=== PATIENT | male | born 1990 | race Caucasian/White ===

== ENCOUNTER 2017-12-21 09:34 | Inpatient (IN) | payer BC ==
[2017-12-21 10:36] VITALS: BMI 21.4
--- NOTE | 2017-12-21 13:31 | HP ---
COWS - Scale Resting Pulse: 0= MS 80 or Below Sweatin= No chills or Flushing Restless Observation: 3= Extraneous Movement Pupil Size: 1= Pupils >than Normal Bone or Joint Aches: 1= Mild Discomfort Runny Nose/ Eye Tearin= None GI Upset > 30mins: 0= None Tremor Observation: 2= Slight Tremor Visible Yawning Observation: 4= Several Times/Minute Anxiety or Irritability: 2=Irritable/Anxious Goose Flesh Skin: 0=Smooth Skin COWS Score: 13 CIWA Score - CIWA Score Nausea/Vomitin-No Nausea/No Vomiting Muscle Tremors: 4-Moderate,w/Arms Extend Anxiety: 4-Mod. Anxious/Guarded Agitation: 1-Slight > Activity Paroxysmal Sweats: 1-Minimal Palms Moist Orientation: 1-Uncertain about Date Tacttile Disturbances: 0-None Auditory Disturbances: 0-None Visual Disturbances: 0-None Headache: 1-Very Mild CIWA-Ar Total Score: 12 Admission ROS S - HPI Chief Complaint: withdrawal symptoms Allergies/Adverse Reactions: Allergies Allergy/AdvReac Type Severity Reaction Status Date / Time fish derived Allergy Intermediate Difficulty Verified 12/21/17 10:57 Breathing shellfish Allergy Intermediate Difficulty Uncoded 12/21/17 10:58 Breathing History of Present Illness: 27 yo male with hx of IV Heroin, cocaine, Xanax dependence. PMHX asthma and difficulty sleeping, denies any other medical hx. Reports imprisonment for 56 months and currently on parole. Longest period of sobriety while in retirement for 8 month. Last detox October, at [facility]Note 3] for Recovery. Currently denies suicidal / homicidal ideation or suicide attempts. - Ebola screening Have you traveled outside of the country in the last 21 days: No Have you had contact with anyone from an Ebola affected area: No Have you been sick,other than usual withdrawal symptoms: No Do you have a fever: No - Review of Systems Constitutional: Chills, Changes in sleep, Unintentional Wgt. Loss (reports lost 10 - 15 lbs in thelast 6 months) EENT: reports: No Symptoms Reported Respiratory: reports: No Symptoms reported Cardiac: reports: No Symptoms Reported GI: reports: No Symptoms Reported : reports: No Symptoms Reported (reports no urinary symptoms) Musculoskeletal: reports: Back Pain, Joint Pain Integumentary: reports: Pruritus, Other (reports like to "pick at skin and forms scabs all over skin ") Neuro: reports: Tremors Endocrine: reports: Increased Thirst, Change in Weight Hematology: reports: No Symptoms Reported Psychiatric: reports: Orientated x3, Anxious Other Systems: Reviewed and Negative Patient History - Patient Medical History Hx Anemia: No Hx Asthma: Yes Hx Chronic Obstructive Pulmonary Disease (COPD): No Hx Cancer: No Hx Cardiac Disorders: No Hx Congestive Heart Failure: No Hx Hypertension: No Hx Hypercholesterolemia: No Hx Pacemaker: No HX Cerebrovascular Accident: No Hx Seizures: No Hx Dementia: No Hx Diabetes: No Hx Gastrointestinal Disorders: No Hx Liver Disease: No Hx Genitourinary Disorders: No Hx Sexually Transmitted Disorders: No Hx Renal Disease (ESRD): No Hx Thyroid Disease: No Hx Human Immunodeficiency Virus (HIV): No Hx Hepatitis C: No Hx Depression: No Hx Suicide Attempt: No Hx Bipolar Disorder: No Hx Schizophrenia: No - Patient Surgical History Past Surgical History: No Hx Neurologic Surgery: No Hx Cataract Extraction: No Hx Cardiac Surgery: No Hx Lung Surgery: No Hx Breast Surgery: No Hx Breast Biopsy: No Hx Abdominal Surgery: No Hx Appendectomy: No Hx Cholecystectomy: No Hx Genitourinary Surgery: No Hx Section: No Hx Orthopedic Surgery: No Anesthesia Reaction: No - PPD History Previous Implant?: Yes Documented Results: Negative w/o proof Implanted On Prior R Admission?: No PPD to be Administered?: Yes - Reproductive History Patient is a Female of Child Bearing Age (11 -55 yrs old): No - Smoking Cessation Smoking history: Current every day smoker Have you smoked in the past 12 months: Yes Aproximately how many cigarettes per day: 10 Hx Chewing Tobacco Use: No Initiated information on smoking cessation: Yes 'Breaking Loose' booklet given: 12/21/17 - Substance & Tx. History Hx Alcohol Use: No Hx Substance Use: Yes Substance Use Type: Cocaine, Heroin, Tranquilizers Hx Substance Use Treatment: Yes ([facility] October 2017) - Substances Abused Heroin Route: Injection Frequency: Daily Amount used: 10-15 bags Age of first use: 26 Date of Last Use: 12/20/17 Cocaine Route: Injection Frequency: Daily Amount used: 3 gms Age of first use: 13 Date of Last Use: 12/20/17 Alprazolam (Xanax) Route: Oral Frequency: Daily Amount used: 2-4 bars Age of first use: 13 Date of Last Use: 12/19/17 Family Disease History - Family Disease History Family Disease History: Other: Father (alive and well ), Mother (alive and well ) Admission Physical Exam [facility] - Vital Signs Vital Signs: Vital Signs - 24 hr 12/21/17 10:33 Temperature 96.2 F L Pulse Rate 78 Respiratory 20 Rate Blood Pressure 115/71 - Physical General Appearance: Yes: No Apparent Distress, Disheveled, Thin, Irritable, Anxious HEENTM: Yes: Hearing grossly Normal, Normal ENT Inspection, Normocephalic, Normal Voice, ROMAIN, Pharynx Normal, Tm's normal, Other (dry mucous membranes) Respiratory: Yes: Chest Non-Tender, Lungs Clear, Normal Breath Sounds, No Respiratory Distress, No Accessory Muscle Use Neck: Yes: No masses,lesions,Nodules, Trachea in good position Breast: Yes: Breast Exam Deferred Cardiology: Yes: Within Normal Limits, Regular Rhythm, Regular Rate, S1, S2 Abdominal: Yes: Normal Bowel Sounds, Non Tender, Flat, Soft Genitourinary: Yes: Within Normal Limits (reports no urinary symptoms) Back: Yes: Normal Inspection Musculoskeletal: Yes: full range of Motion, Gait Steady, Pelvis Stable Extremities: Yes: Normal Capillary Refill, Normal Inspection, Normal Range of Motion, Non-Tender Neurological: Yes: Fully Oriented, Alert, Motor Strength 5/5, Normal Mood/Affect , Normal Response Integumentary: Yes: Normal Color, Dry, Warm, Track Ann (bilateral forearms in different healing stages), Other (poor skin turgor) Lymphatic: Yes: Within Normal Limits - Diagnostic (1) Opioid dependence with withdrawal Current Visit: Yes Status: Acute (2) Sedative, hypnotic or anxiolytic use, unspecified with withdrawal with perceptual disturbances Current Visit: Yes Status: Acute (3) Cocaine dependence Current Visit: Yes Status: Chronic (4) Weight loss Current Visit: Yes Status: Acute (5) Dehydration Current Visit: Yes Status: Acute (6) Asthma Current Visit: Yes Status: Chronic Qualifiers: Asthma severity: mild (7) Nicotine dependence Current Visit: Yes Status: Chronic Qualifiers: Nicotine product type: cigarettes Substance use status: uncomplicated Qualified Code(s): F17.210 - Nicotine dependence, cigarettes, uncomplicated (8) IV drug user Current Visit: Yes Status: Acute Cleared for Admission [facility] - Detox or Rehab [facility] Level of Care: Medically Managed Detox Regimen/Protocol: Methadone/Valium [facility] Breath Alcohol Content Breath Alcohol Content: 0 Urine Drug Screen - Results Drug Screen Negative: No Urine Drug Screen Results: THC-Marijuana, RENE-Cocaine, OPI-Opiates, OXY- Oxycodone
[2017-12-21] MEDS ORDERED: MAG HYDROX/AL HYDROX/SIMETH 30 ML UNIT-DOSE CUP PO PRN (13:42)
[2017-12-21] MEDS ORDERED: IBUPROFEN 400 MG TABLET (FP) PO PRN (13:42)
[2017-12-21] MEDS ORDERED: hydrOXYzine PAMOATE 50 MG CAPSULE (FP) PO PRN (13:42)
[2017-12-21] MEDS ORDERED: NICOTINE POLACRILEX 2 MG GUM BUC PRN (13:42)
[2017-12-21] MEDS ORDERED: LOPERAMIDE HCL 2 MG CAPSULE PO PRN (13:42)
[2017-12-21] MEDS ORDERED: P-EPHED 60MG/TRIPROLIDI 2.5MG TABLET PO PRN (13:42)
[2017-12-21] MEDS ORDERED: ACETAMINOPHEN 325 MG TABLET (FP) PO PRN (13:42)
[2017-12-21] MEDS ORDERED: MAGNESIUM HYDROX 2400MG/30ML ORAL SUSPENSION 30 ML CUP PO PRN (13:42)
[2017-12-21] MEDS ORDERED: MENTHOL/PHENOL 1 EACH UD MM PRN (13:42)
[2017-12-21] MEDS ORDERED: MAGNESIUM CITRATE 300 ML BOTTLE PO PRN (13:42)
[2017-12-21] MEDS ORDERED: guaiFENesin/D-METHORPHAN HB 10 ML UNIT-DOSE CUPS PO PRN (13:42)
[2017-12-21] MEDS ORDERED: ALBUTEROL SO4 18 GM HFA INHALER IH PRN (13:45)
[2017-12-21] MEDS ORDERED: ALBUTEROL SO4 2.5/IPRATROPIUM 0.5 INH SOL 3 ML VIAL.NEB. NEB PRN (13:51)
[2017-12-21] MEDS ORDERED: diazePAM 5 MG TABLET PO ONE (13:59)
[2017-12-21] MEDS ORDERED: METHADONE HCL 10 MG TABLET (FOR DETOX USE ONLY) PO ONE ×2 (13:59→23:00)
[2017-12-21] MEDS: NICOTINE 14 MG/24 HOURS TOPICAL PATCH TD SCH (14:48)
[2017-12-21] MEDS: diazePAM 5 MG TABLET PO SCH ×2 (14:57→22:07)
[2017-12-21 17:32] LABS: URINE APPEARANCE CLEAR; URINE BILIRUBIN NEGATIVE (NEGATIVE); URINE BLOOD NEGATIVE (NEGATIVE); URINE COLOR DKYELLOW; URINE GLUCOSE (UA) NEGATIVE (NEGATIVE); URINE KETONE NEGATIVE (NEGATIVE); URINE LEUK ESTERASE NEGATIVE (NEGATIVE); URINE NITRITE NEGATIVE (NEGATIVE)
[2017-12-21 17:37] LABS: URINE PROTEIN 1+ (NEGATIVE)
--- NOTE | 2017-12-21 18:04 | CONSULT ---
[facility] Psychiatric Consult - Data Date of interview: 12/21/17 Admission source: [facility] Identifying data: First admission to [facility] for this 27 y/o male seeking detox treatment on 3 for heroin,cocaine,marihuana and xanax dependence.Patient is single without children,domiciled,unemployed and supported by relatives. Substance Abuse History: Discussed with patient.Addictions as reported in current [facility] report : confirmed. Smoking history: Current every day smoker. Have you smoked in the past 12 months: Yes. Aproximately how many cigarettes per day: 10. Hx Chewing Tobacco Use: No. Initiated information on smoking cessation: Yes. 'Breaking Loose' booklet given: 12/21/17. - Substance & Tx. History. Hx Alcohol Use: No. Hx Substance Use: Yes. Substance Use Type: Cocaine, Heroin, Tranquilizers. Hx Substance Use Treatment: Yes ([facility] October 2017). - Substances Abused. Heroin. Route: Injection. Frequency: Daily. Amount used: 10-15 bags. Age of first use: 26. Date of Last Use: 12/20/17. * * Cocaine. Route: Injection. Frequency: Daily. Amount used: 3 gms. Age of first use: 13. Date of Last Use: 12/20/17. Alprazolam (Xanax). Route: Oral. Frequency: Daily. Amount used: 2-4 bars. Age of first use: 13. Date of Last Use: 12/19/17 Medical History: Bronchial asthma. Psychiatric History: One psychiatric hospitalizations,at age 14,at the [facility].Diagnosis : unclear (patient did not elaborate).Mr Jerry indicates that he is not on psychiatric medications with the exception of naloxone.Sees a private psychiatrist in the community ([facility]). Physical/Sexual Abuse/Trauma History: Patient denies. Additional Comment: Urine Drug Screen Results: THC-Marijuana, RENE-Cocaine, OPI- Opiates, OXY-Oxycodone.Noted. Mental Status Exam - Mental Status Exam Alert and Oriented to: Time, Place, Person Cognitive Function: Good Patient Appearance: Disheveled Mood: Nervous (dysphoric), Withdrawn, Anxious Affect: Appropriate, Normal Range Patient Behavior: Fatigued, Appropriate, Cooperative Speech Pattern: Clear, Appropriate Voice Loudness: Normal Thought Process: Goal Oriented Thought Disorder: Not Present Hallucinations: Denies Suicidal Ideation: Denies Homicidal Ideation: Denies Insight/Judgement: Poor Sleep: Well (remeron), Poorly, Difficulty falling asleep Appetite: Good Muscle strength/Tone: Normal Gait/Station: Normal Psychiatric Findings - Problem List (Zenia 1, 2,3) (1) Opioid dependence with withdrawal Current Visit: Yes Status: Acute (2) Sedative, hypnotic or anxiolytic use, unspecified with withdrawal with perceptual disturbances Current Visit: Yes Status: Acute (3) Cocaine dependence Current Visit: Yes Status: Chronic (4) Cannabis dependence Current Visit: Yes Status: Acute (5) Nicotine dependence Current Visit: Yes Status: Chronic Qualifiers: Nicotine product type: cigarettes Substance use status: uncomplicated Qualified Code(s): F17.210 - Nicotine dependence, cigarettes, uncomplicated (6) Substance induced mood disorder Current Visit: Yes Status: Acute (7) Insomnia Current Visit: Yes Status: Acute - Initial Treatment Plan Initial Treatment Plan: Psychoeducation and syupport.Sleep hygiene discussed with patient.Detoxification in progress.Remeron 7.5 mg po hs.Side effects/ benefits discussed with the patient.Mr Jerry agreed to this careplan.Observation.
[2017-12-21] MEDS: diazePAM 5 MG TABLET PO PRN (20:27)
[2017-12-21] MEDS: MIRTAZAPINE 15 MG TABLET (FP) PO SCH (22:06)
[2017-12-21] MEDS: THIAMINE HCL 100 MG TABLET (FP) PO SCH (22:07)
[2017-12-22] MEDS: diazePAM 5 MG TABLET PO PRN ×2 (00:33→10:12)
[2017-12-22] MEDS: diazePAM 5 MG TABLET PO SCH ×3 (05:57→22:07)
[2017-12-22] MEDS ORDERED: METHADONE HCL 10 MG TABLET (FOR DETOX USE ONLY) PO SCH (10:00)
[2017-12-22] MEDS: PRENATAL VITAMINS W/ FOLIC ACID TABLET (FP) PO SCH (10:12)
[2017-12-22] MEDS: NICOTINE 14 MG/24 HOURS TOPICAL PATCH TD SCH (10:13)
[2017-12-22 10:38] LABS: HEMATOCRIT 41.7 % (35.4-49); HEMOGLOBIN 13.9 GM/dL (11.7-16.9); MCH 30.6 pg (25.7-33.7); MCHC 33.3 g/dl (32.0-35.9); MEAN CELL VOLUME 91.9 fl (80-96); MEAN PLT VOLUME 9.5 fl (7.5-11.1); PLATELET COUNT 299 K/MM3 (134-434); RBC 4.53 M/mm3 (4.00-5.60); RDW 12.8 % (11.9-15.9); WHITE BLOOD COUNT 10.2 K/mm3 (4.0-10.0)
[2017-12-22 11:13] LABS: ANION GAP 7 (8-16); BLOOD UREA NITROGEN 19 mg/dL (7-18); CHLORIDE 103 mmol/L (98-107); CO2 30 mmol/L (21-32); GLUCOSE,RANDOM 91 mg/dL (74-106); POTASSIUM 3.6 mmol/L (3.5-5.1); SODIUM 140 mmol/L (136-145); TOT PROT 7.8 g/dl (6.4-8.2)
[2017-12-22 11:21] LABS: ALK PHOS 97 U/L (45-117); BILIRUBIN,TOTAL 0.6 mg/dL (0.2-1.0); CREATININE 0.9 mg/dL (0.7-1.3); SGOT/AST 23 U/L (15-37); SGPT/ALT 44 U/L (12-78)
[2017-12-22] MEDS ORDERED: CYCLOBENZAPRINE HCL 10 MG TABLET (FP) PO PRN (11:32)
--- NOTE | 2017-12-22 14:39 | PN ---
[facility] CIWA - CIWA Score Nausea/Vomitin-No Nausea/No Vomiting Muscle Tremors: 2 Anxiety: 4-Mod. Anxious/Guarded Agitation: 3 Paroxysmal Sweats: 3 Orientation: 0-Oriented Tacttile Disturbances: 2-Mild Itch/Numbness/Burn Auditory Disturbances: 1-Very Mild Visual Disturbances: 0-None Headache: 3-Moderate CIWA-Ar Total Score: 18 BHS COWS - Scale Resting Pulse: 1= NM 81-100 Sweatin= Chills/Flushing Restless Observation: 1= Difficult to Sit Still Pupil Size: 0= Normal to Room Light Bone or Joint Aches: 2= Severe Diffuse Aches Runny Nose/ Eye Tearin= None GI Upset > 30mins: 1= Stomach Cramp Tremor Observation of Outstretched Hands: 0= None Yawning Observation: 1= 1-2x During Session Anxiety or Irritability: 2=Irritable/Anxious Goose Flesh Skin: 3=Piloerection COWS Score: 12 BHS Progress Note (SOAP) Subjective: Interrupted sleep, Sweating, Body aches, H/A. Objective: PT. A & O X 3, OBSERVED AMBULATING ON UNIT. NO ACUTE DISTRESS. 12/22/17 14:37 Vital Signs Temperature 96.9 F L 12/22/17 13:19 Pulse Rate 84 12/22/17 13:19 Respiratory Rate 18 12/22/17 13:19 Blood Pressure 107/63 12/22/17 13:19 O2 Sat by Pulse Oximetry (%) Laboratory Tests 12/21/17 12/22/17 12/22/17 15:00 08:15 08:15 WBC 10.2 H RBC 4.53 Hgb 13.9 Hct 41.7 MCV 91.9 MCH 30.6 MCHC 33.3 RDW 12.8 Plt Count 299 MPV 9.5 Sodium Potassium Chloride Carbon Dioxide Anion Gap BUN Creatinine Creat Clearance w eGFR Random Glucose Calcium Total Bilirubin AST ALT Alkaline Phosphatase Total Protein Albumin Urine Color Dkyellow Urine Appearance Clear Urine pH 5.0 Ur Specific [place] 1.029 Urine Protein 1+ H Urine Glucose (UA) Negative Urine Ketones Negative Urine Blood Negative Urine Nitrite Negative Urine Bilirubin Negative Urine Urobilinogen 2.0 Ur Leukocyte Esterase Negative RPR Titer HIV 1&2 Antibody Screen Negative HIV P24 Antigen Negative 12/22/17 12/22/17 08:15 08:15 WBC RBC Hgb Hct MCV MCH MCHC RDW Plt Count MPV Sodium 140 Potassium 3.6 Chloride 103 Carbon Dioxide 30 Anion Gap 7 L BUN 19 H Creatinine 0.9 Creat Clearance w eGFR > 60 Random Glucose 91 Calcium 9.0 Total Bilirubin 0.6 AST 23 ALT 44 Alkaline Phosphatase 97 Total Protein 7.8 Albumin 4.0 Urine Color Urine Appearance Urine pH Ur Specific [place] Urine Protein Urine Glucose (UA) Urine Ketones Urine Blood Urine Nitrite Urine Bilirubin Urine Urobilinogen Ur Leukocyte Esterase RPR Titer Nonreactive HIV 1&2 Antibody Screen HIV P24 Antigen LABS NOTED. HCV AB RESULT PENDING. 12/22/17 14:39 Assessment: 12/22/17 14:37 WITHDRAWAL SYMPTOMS. Plan: CONTINUE DETOX. INCREASE DAILY PO FLUID INTAKE.
[2017-12-22] MEDS: MIRTAZAPINE 15 MG TABLET (FP) PO SCH (22:07)
[2017-12-22] MEDS: THIAMINE HCL 100 MG TABLET (FP) PO SCH (22:07)
[2017-12-23 09:40] VITALS: BP 128/80; PULSE 82; TEMP 98
[2017-12-23] MEDS ORDERED: METHADONE HCL 5 MG TABLET (FOR DETOX USE ONLY) PO SCH (10:00)
[2017-12-23] MEDS ORDERED: diazePAM 5 MG TABLET PO SCH (10:00)
[2017-12-23] MEDS: PRENATAL VITAMINS W/ FOLIC ACID TABLET (FP) PO SCH (10:06)
[2017-12-23] MEDS: NICOTINE 14 MG/24 HOURS TOPICAL PATCH TD SCH (10:08)
--- NOTE | 2017-12-23 12:50 | DS ---
[facility] Detox Discharge Summary Admission Date: 12/21/17 Discharge Date: 12/23/17 - History Present History: Cannabis Dependence, Cocaine Dependence, Opioid Dependence, Sedative Dependence Additional Comments: PATIENT DOES NOT WISH TO STAY TO COMPLETE DETOX REGIMEN. RISKS OF LEAVING AGAINST MEDICAL ADVICE AND PRIOR TO COMPLETION OF DETOX REGIMEN EXPLAINED TO PATIENT. PATIENT ADVISED TO GO IMMEDIATELY TO NEAREST ER SHOULD ANY INTOLERABLE DETOX SYMPTOMS DEVELOP AT ANY TIME. PATIENT LEFT DETOX UNIT IN STABLE MEDICAL CONDITION. Pertinent Past History: Dehydration, Depression, Insomnia, Asthma, Weight loss. - Physical Exam Results Vital Signs: Vital Signs Temperature 98.0 F 12/23/17 09:39 Pulse Rate 82 12/23/17 09:39 Respiratory Rate 18 12/23/17 09:39 Blood Pressure 128/80 12/23/17 09:39 O2 Sat by Pulse Oximetry (%) Pertinent Admission Physical Exam Findings: WITHDRAWAL SYMPTOMS. Laboratory Tests 12/21/17 12/22/17 12/22/17 15:00 08:15 08:15 WBC RBC Hgb Hct MCV MCH MCHC RDW Plt Count MPV Sodium Potassium Chloride Carbon Dioxide Anion Gap BUN Creatinine Creat Clearance w eGFR Random Glucose Calcium Total Bilirubin AST ALT Alkaline Phosphatase Total Protein Albumin Urine Color Dkyellow Urine Appearance Clear Urine pH 5.0 Ur Specific [place] 1.029 Urine Protein 1+ H Urine Glucose (UA) Negative Urine Ketones Negative Urine Blood Negative Urine Nitrite Negative Urine Bilirubin Negative Urine Urobilinogen 2.0 Ur Leukocyte Esterase Negative RPR Titer Hepatitis C Antibody <0.1 HIV 1&2 Antibody Screen Negative HIV P24 Antigen Negative 12/22/17 12/22/17 12/22/17 08:15 08:15 08:15 WBC 10.2 H RBC 4.53 Hgb 13.9 Hct 41.7 MCV 91.9 MCH 30.6 MCHC 33.3 RDW 12.8 Plt Count 299 MPV 9.5 Sodium 140 Potassium 3.6 Chloride 103 Carbon Dioxide 30 Anion Gap 7 L BUN 19 H Creatinine 0.9 Creat Clearance w eGFR > 60 Random Glucose 91 Calcium 9.0 Total Bilirubin 0.6 AST 23 ALT 44 Alkaline Phosphatase 97 Total Protein 7.8 Albumin 4.0 Urine Color Urine Appearance Urine pH Ur Specific [place] Urine Protein Urine Glucose (UA) Urine Ketones Urine Blood Urine Nitrite Urine Bilirubin Urine Urobilinogen Ur Leukocyte Esterase RPR Titer Nonreactive Hepatitis C Antibody HIV 1&2 Antibody Screen HIV P24 Antigen LABS NOTED. - Treatment Hospital Course: Detoxed Safely - Medication Discharge Medications: Ambulatory Orders Albuterol Sulfate Inhaler - [Ventolin Hfa Inhaler -] 1 - 2 inh PO QID PRN - Diagnosis (1) IV drug user Current Visit: Yes Status: Acute (2) Opioid dependence with withdrawal Current Visit: Yes Status: Acute (3) Sedative, hypnotic or anxiolytic use, unspecified with withdrawal with perceptual disturbances Current Visit: Yes Status: Acute (4) Dehydration Current Visit: Yes Status: Acute (5) Insomnia Current Visit: Yes Status: Acute Qualifiers: Insomnia type: unspecified Qualified Code(s): G47.00 - Insomnia, unspecified (6) Asthma Current Visit: Yes Status: Chronic Qualifiers: Asthma severity: mild Asthma persistence: unspecified Asthma complication type: unspecified Qualified Code(s): J45.998 - Other asthma (7) Weight loss Current Visit: Yes Status: Acute (8) Cocaine dependence Current Visit: Yes Status: Chronic Qualifiers: Substance use status: uncomplicated Qualified Code(s): F14.20 - Cocaine dependence, uncomplicated (9) Substance induced mood disorder Current Visit: Yes Status: Acute - AMA Did Patient Leave Against Medical Advice: Yes (PATIENT DID NOT WISH TO STAY TO COMPLETE DETOX REGIMEN.)
--- NOTE | 2017-12-23 13:25 | EKG ---
Test Reason : Blood Pressure : / mmHG Vent. Rate : 055 BPM Atrial Rate : 055 BPM P-R Int : 114 ms QRS Dur : 108 ms QT Int : 528 ms P-R-T Axes : 067 073 072 degrees QTc Int : 505 ms SINUS BRADYCARDIA PROLONGED QT ABNORMAL ECG NO PREVIOUS ECGS AVAILABLE CLINICAL CORRELATION IS RECOMMENDED Confirmed by MAYE IBARRA MD ([id number]) on 12/23/2017 1:25:09 PM Referred By: Confirmed By:MAYE IBARRA MD
--- NOTE | 2017-12-23 13:29 | EKG ---
Test Reason : Blood Pressure : / mmHG Vent. Rate : 061 BPM Atrial Rate : 061 BPM P-R Int : 142 ms QRS Dur : 094 ms QT Int : 510 ms P-R-T Axes : 074 077 075 degrees QTc Int : 513 ms NORMAL SINUS RHYTHM PROLONGED QT ABNORMAL ECG WHEN COMPARED WITH ECG OF 21-DEC-2017 14:59, NO SIGNIFICANT CHANGE WAS FOUND CLINICAL CORRELATION IS RECOMMENDED Confirmed by STACEY QUAN, MAYE ([id number]) on 12/23/2017 1:28:54 PM Referred By: Confirmed By:MAYE IBARRA MD
[2017-12-25] MEDS ORDERED: METHADONE HCL 10 MG TABLET (FOR DETOX USE ONLY) PO SCH (10:00)
[2017-12-25] MEDS ORDERED: diazePAM 5 MG TABLET PO SCH (10:00)
[2017-12-26] MEDS ORDERED: METHADONE HCL 5 MG TABLET (FOR DETOX USE ONLY) PO SCH (06:00)
== END 2017-12-23 12:05 | disposition left against medical advice (07) | DRG 894 ==
LOC: YASAS 09:34 → Y3N 13:54
PROVIDERS: ADMIT Internal Medicine; ATTEND Internal Medicine
PROC: HZ2ZZZZ Detoxification Services for Substance Abuse Treatment (ICD-10-PCS; principal; 2017-12-21)
DX: F11.23 Opioid dependence with withdrawal (principal); F14.20 Cocaine dependence, uncomplicated; F13.932 Sedative, hypnotic or anxiolytic use, unspecified with withdrawal with perceptual disturbances; F12.20 Cannabis dependence, uncomplicated; F32.9 Major depressive disorder, single episode, unspecified; F19.24 Other psychoactive substance dependence with psychoactive substance-induced mood disorder; G47.00 Insomnia, unspecified; J45.909 Unspecified asthma, uncomplicated; E86.0 Dehydration; R63.4 Abnormal weight loss; Z68.21 Body mass index [BMI] 21.0-21.9, adult
CPT/HCPCS: 36415; 80053; 81003; 81015; 85027; 86593; 86803; 87389; 93005; 93010

== ENCOUNTER 2017-12-27 11:16 | Inpatient (IN) | payer BC ==
[2017-12-27 14:25] VITALS: BMI 21.1
[2017-12-27] MEDS ORDERED: ALBUTEROL SO4 18 GM HFA INHALER IH PRN ×2 (17:03→17:51)
--- NOTE | 2017-12-27 17:10 | HP ---
COWS - Scale Resting Pulse: 1= [place] 81-100 Sweatin= Chills/Flushing Restless Observation: 1= Difficult to Sit Still Pupil Size: 1= Pupils >than Normal Bone or Joint Aches: 1= Mild Discomfort Runny Nose/ Eye Tearin= Runny Nose/Eyes GI Upset > 30mins: 1= Stomach Cramp Tremor Observation: 2= Slight Tremor Visible Yawning Observation: 4= Several Times/Minute Anxiety or Irritability: 2=Irritable/Anxious Goose Flesh Skin: 3=Piloerection COWS Score: 19 CIWA Score - CIWA Score Nausea/Vomitin-Mild Nausea/No Vomiting Muscle Tremors: 3 Anxiety: 4-Mod. Anxious/Guarded Agitation: 4-Moderately Restless Paroxysmal Sweats: 2 Orientation: 0-Oriented Tacttile Disturbances: 2-Mild Itch/Numbness/Burn Auditory Disturbances: 0-None Visual Disturbances: 0-None Headache: 0-None Present CIWA-Ar Total Score: 16 Admission ROS S - HPI Chief Complaint: withdrawal symptoms Allergies/Adverse Reactions: Allergies Allergy/AdvReac Type Severity Reaction Status Date / Time fish derived Allergy Intermediate Difficulty Verified 12/27/17 17:20 Breathing shellfish Allergy Intermediate Difficulty Uncoded 12/27/17 17:20 Breathing History of Present Illness: 27 yo male with history of IV heroin, cocaine, and xanax dependence is here for detox. PMHX: asthma and difficulty sleeping. Denies suicidal / homicidal ideation or suicide attempts. Longest period of sobriety 8 months. Attempted detox on 12/21/17 and left AMA. Exam Limitations: No Limitations - Ebola screening Have you traveled outside of the country in the last 21 days: No (N) Have you had contact with anyone from an Ebola affected area: No Have you been sick,other than usual withdrawal symptoms: No Do you have a fever: No - Review of Systems Constitutional: Chills, Loss of Appetite, Changes in sleep, Weakness, Unintentional Wgt. Loss EENT: reports: No Symptoms Reported Respiratory: reports: No Symptoms reported Cardiac: reports: No Symptoms Reported GI: reports: Constipated, Abdominal cramping Musculoskeletal: reports: Joint Pain Integumentary: reports: No Symptoms Reported Neuro: reports: No Symptoms reported Endocrine: reports: Increased Thirst, Change in Weight Hematology: reports: No Symptoms Reported Psychiatric: reports: Orientated x3, Anxious Other Systems: Reviewed and Negative Patient History - Patient Medical History Hx Anemia: No Hx Asthma: Yes Hx Chronic Obstructive Pulmonary Disease (COPD): No Hx Cancer: No Hx Cardiac Disorders: No Hx Congestive Heart Failure: No Hx Hypertension: No Hx Hypercholesterolemia: No Hx Pacemaker: No HX Cerebrovascular Accident: No Hx Seizures: No Hx Dementia: No Hx Diabetes: No Hx Gastrointestinal Disorders: No Hx Liver Disease: No Hx Genitourinary Disorders: No Hx Sexually Transmitted Disorders: No Hx Renal Disease (ESRD): No Hx Thyroid Disease: No Hx Human Immunodeficiency Virus (HIV): No Hx Hepatitis C: No Hx Depression: No Hx Suicide Attempt: No Hx Bipolar Disorder: No Hx Schizophrenia: No - Patient Surgical History Past Surgical History: No Hx Neurologic Surgery: No Hx Cataract Extraction: No Hx Cardiac Surgery: No Hx Lung Surgery: No Hx Breast Surgery: No Hx Breast Biopsy: No Hx Abdominal Surgery: No Hx Appendectomy: No Hx Cholecystectomy: No Hx Genitourinary Surgery: No Hx Section: No Hx Orthopedic Surgery: No Anesthesia Reaction: No - PPD History Previous Implant?: Yes PPD to be Administered?: No - Reproductive History Patient is a Female of Child Bearing Age (11 -55 yrs old): No - Smoking Cessation Smoking history: Current every day smoker Have you smoked in the past 12 months: Yes Aproximately how many cigarettes per day: 10 Hx Chewing Tobacco Use: No Initiated information on smoking cessation: Yes 'Breaking Loose' booklet given: 12/27/17 - Substance & Tx. History Hx Alcohol Use: No Hx Substance Use: Yes Substance Use Type: Cocaine, Marijuana, Opiates, Tranquilizers Hx Substance Use Treatment: Yes - Substances Abused Cocaine Route: Injection Frequency: Daily Amount used: 1 - 2grams Age of first use: 13 Date of Last Use: 12/26/17 Heroin Route: Injection Frequency: Daily Amount used: 1 bundle Age of first use: 26 Date of Last Use: 12/26/17 Marijuana/Hashish Route: Smoking Frequency: 3-6 times per week Amount used: 1 - 2 joints Age of first use: 13 Date of Last Use: 12/26/17 Alprazolam (Xanax) Route: Oral Frequency: 3-6 times per week Amount used: 2 - 3 Age of first use: 13 Date of Last Use: 12/27/17 Family Disease History - Family Disease History Family Disease History: Other: Father (alive and well ), Mother (alive and well ) Admission Physical Exam [facility] - Vital Signs Vital Signs: Vital Signs - 24 hr 12/27/17 14:19 Temperature 97.9 F Pulse Rate 83 Respiratory 20 Rate Blood Pressure 113/65 - Physical General Appearance: Yes: Disheveled, Thin, Irritable, Sweating, Anxious HEENTM: Yes: Within Normal Limits, Hearing grossly Normal, Normal ENT Inspection , Normocephalic, Normal Voice, ROMAIN, Pharynx Normal, Tm's normal, Other (dry mucous membranes) Respiratory: Yes: Chest Non-Tender, Lungs Clear, Normal Breath Sounds, No Respiratory Distress, No Accessory Muscle Use Neck: Yes: Within Normal Limits, No masses,lesions,Nodules, Trachea in good position Breast: Yes: Breast Exam Deferred Cardiology: Yes: Within Normal Limits, Regular Rhythm, Regular Rate Abdominal: Yes: Within Normal Limits, Normal Bowel Sounds, Non Tender, Flat, Soft Genitourinary: Yes: Within Normal Limits Back: Yes: Normal Inspection Musculoskeletal: Yes: Within Normal Limits, full range of Motion Extremities: Yes: Normal Capillary Refill, Normal Inspection, Normal Range of Motion, Non-Tender Neurological: Yes: mechanics supervisor II-XII NML intact, Fully Oriented, Motor Strength 5/5, Depressed Affect, Other (agitated) Integumentary: Yes: Normal Color, Dry, Warm, Track Ann (in differnt healing stages), Other (non bleeding lesion on the neck (right)) Lymphatic: Yes: Within Normal Limits - Diagnostic (1) Cannabis dependence Current Visit: Yes Status: Chronic (2) Dehydration Current Visit: Yes Status: Acute (3) IV drug user Current Visit: Yes Status: Chronic (4) Opioid dependence with withdrawal Current Visit: No Status: Acute (5) Sedative, hypnotic or anxiolytic use, unspecified with withdrawal with perceptual disturbances Current Visit: Yes Status: Acute (6) Weight loss Current Visit: Yes Status: Acute (7) Cocaine dependence Current Visit: Yes Status: Chronic Qualifiers: Substance use status: uncomplicated Qualified Code(s): F14.20 - Cocaine dependence, uncomplicated (8) Nicotine dependence Current Visit: Yes Status: Chronic Qualifiers: Nicotine product type: cigarettes Substance use status: uncomplicated Qualified Code(s): F17.210 - Nicotine dependence, cigarettes, uncomplicated (9) Sleeping difficulty Current Visit: Yes Status: Chronic Cleared for Admission [facility] - Detox or Rehab [facility] Level of Care: Medically Managed Detox Regimen/Protocol: Methadone, Methadone/Valium [facility] Breath Alcohol Content Breath Alcohol Content: 0 Urine Drug Screen - Results Drug Screen Negative: No Urine Drug Screen Results: THC-Marijuana, RENE-Cocaine, OPI-Opiates, BZO- Benzodiazepines, MTD-Methadone
[2017-12-27] MEDS ORDERED: MAGNESIUM HYDROX 2400MG/30ML ORAL SUSPENSION 30 ML CUP PO PRN (17:17)
[2017-12-27] MEDS ORDERED: P-EPHED 60MG/TRIPROLIDI 2.5MG TABLET PO PRN (17:17)
[2017-12-27] MEDS ORDERED: MENTHOL/PHENOL 1 EACH UD MM PRN (17:17)
[2017-12-27] MEDS ORDERED: MAGNESIUM CITRATE 300 ML BOTTLE PO PRN (17:17)
[2017-12-27] MEDS ORDERED: IBUPROFEN 400 MG TABLET (FP) PO PRN (17:17)
[2017-12-27] MEDS ORDERED: ACETAMINOPHEN 325 MG TABLET (FP) PO PRN (17:17)
[2017-12-27] MEDS ORDERED: LOPERAMIDE HCL 2 MG CAPSULE PO PRN (17:17)
[2017-12-27] MEDS ORDERED: guaiFENesin/D-METHORPHAN HB 10 ML UNIT-DOSE CUPS PO PRN (17:17)
[2017-12-27] MEDS ORDERED: MAG HYDROX/AL HYDROX/SIMETH 30 ML UNIT-DOSE CUP PO PRN (17:17)
[2017-12-27] MEDS ORDERED: hydrOXYzine PAMOATE 50 MG CAPSULE (FP) PO PRN (17:29)
[2017-12-27] MEDS ORDERED: diazePAM 5 MG TABLET PO ONE (18:15)
[2017-12-27] MEDS ORDERED: METHADONE HCL 10 MG TABLET (FOR DETOX USE ONLY) PO ONE ×2 (18:15→23:00)
[2017-12-27] MEDS: THIAMINE HCL 100 MG TABLET (FP) PO SCH (22:43)
[2017-12-27] MEDS: diazePAM 5 MG TABLET PO SCH (22:44)
[2017-12-28] MEDS: diazePAM 5 MG TABLET PO PRN ×3 (03:49→17:46)
[2017-12-28] MEDS: diazePAM 5 MG TABLET PO SCH ×3 (05:33→22:07)
[2017-12-28] MEDS ORDERED: METHADONE HCL 10 MG TABLET (FOR DETOX USE ONLY) PO SCH (10:00)
[2017-12-28 10:21] LABS: HEMATOCRIT 42.1 % (35.4-49); HEMOGLOBIN 13.7 GM/dL (11.7-16.9); MCH 30.1 pg (25.7-33.7); MCHC 32.6 g/dl (32.0-35.9); MEAN CELL VOLUME 92.6 fl (80-96); MEAN PLT VOLUME 9.4 fl (7.5-11.1); PLATELET COUNT 272 K/MM3 (134-434); RBC 4.54 M/mm3 (4.00-5.60); RDW 12.8 % (11.9-15.9); WHITE BLOOD COUNT 8.1 K/mm3 (4.0-10.0)
[2017-12-28] MEDS: PRENATAL VITAMINS W/ FOLIC ACID TABLET (FP) PO SCH (10:21)
[2017-12-28 10:50] LABS: CHLORIDE 108 mmol/L (98-107); SODIUM 142 mmol/L (136-145)
[2017-12-28 11:09] LABS: ALBUMIN 3.4 g/dl (3.4-5.0); ALK PHOS 124 U/L (45-117); ANION GAP 8 (8-16); BILIRUBIN,TOTAL 0.7 mg/dL (0.2-1.0); BLOOD UREA NITROGEN 15 mg/dL (7-18); CALCIUM 8.5 mg/dL (8.5-10.1); CO2 26 mmol/L (21-32); CREATININE 0.8 mg/dL (0.7-1.3); GLUCOSE,RANDOM 96 mg/dL (74-106); SGOT/AST 72 U/L (15-37); SGPT/ALT 169 U/L (12-78); TOT PROT 6.8 g/dl (6.4-8.2)
--- NOTE | 2017-12-28 11:17 | CONSULT ---
[facility] Psychiatric Consult - Data Date of interview: 12/28/17 Admission source: [facility] Identifying data: Pt. is a 27 year old single male, without kids, and currently unemployed. This is one of multiple admissions for patient. Pt. admitted to for opiate, cocaine, marijuana, and benzodiazepine dependence. Substance Abuse History: Following information confirmed with Mr. Jerry: Smoking Cessation. Smoking history: Current every day smoker. Have you smoked in the past 12 months: Yes. Aproximately how many cigarettes per day: 10. Hx Chewing Tobacco Use: No. Initiated information on smoking cessation: Yes. ' Breaking Loose' booklet given: 12/27/17. - Substance & Tx. History. Hx Alcohol Use: No. Hx Substance Use: Yes. Substance Use Type: Cocaine, Marijuana , Opiates, Tranquilizers. Hx Substance Use Treatment: Yes. - Substances Abused. Cocaine. Route: Injection. Frequency: Daily. Amount used: 1 - 2grams. Age of first use: 13. Date of Last Use: 12/26/17. Heroin. Route: Injection. Frequency: Daily. Amount used: 1 bundle. Age of first use: 26. Date of Last Use: 12/26/17. Marijuana/Hashish. Route: Smoking. Frequency: 3-6 times per week. Amount used: 1 - 2 joints. Age of first use: 13. Date of Last Use: 12/26/17. Alprazolam (Xanax). Route: Oral. Frequency: 3-6 times per week. Amount used: 2 - 3. Age of first use: 13. Date of Last Use: Medical History: Denies. Psychiatric History: Pt. denies h/o psychiatric hospitalization, suicide attempts and outpatient care. As per Dr. Bradford note on 12/21/17, patient reports one psychiatric hospitalization at [facility] at 14 years of age. Pt also reported outpatient psychiatric care in [place]. Physical/Sexual Abuse/Trauma History: Denies. Mental Status Exam - Mental Status Exam Alert and Oriented to: Time, Place, Person Cognitive Function: Good Patient Appearance: Well Groomed Mood: Euthymic Affect: Appropriate Patient Behavior: Appropriate Speech Pattern: Appropriate Voice Loudness: Normal Thought Process: Goal Oriented Thought Disorder: Not Present Hallucinations: Denies Suicidal Ideation: Denies Homicidal Ideation: Denies Insight/Judgement: Poor Sleep: Poorly Appetite: Fair Muscle strength/Tone: Normal Gait/Station: Normal Psychiatric Findings - Problem List ([place] 1, 2,3) (1) Sedative, hypnotic or anxiolytic use, unspecified with withdrawal with perceptual disturbances Current Visit: Yes Status: Acute (2) Cannabis dependence Current Visit: Yes Status: Chronic (3) Cocaine dependence Current Visit: Yes Status: Chronic Qualifiers: Substance use status: uncomplicated Qualified Code(s): F14.20 - Cocaine dependence, uncomplicated (4) Opioid dependence with withdrawal Current Visit: No Status: Acute (5) Insomnia Current Visit: Yes Status: Acute (6) Substance induced mood disorder Current Visit: Yes Status: Acute - Initial Treatment Plan Initial Treatment Plan: Psychoeducation provided. Detoxification in progress. Mirtazapine 7.5 qhs ordered. Benefits and side effects discussed. Verbal consent given.
--- NOTE | 2017-12-28 11:48 | PN ---
[facility] CIWA - CIWA Score Nausea/Vomitin Muscle Tremors: 3 Anxiety: 3 Agitation: 3 Paroxysmal Sweats: 1-Minimal Palms Moist Orientation: 0-Oriented Tacttile Disturbances: 1-Very Mild Itch/Numbness Auditory Disturbances: 1-Very Mild Visual Disturbances: 0-None Headache: 2-Mild CIWA-Ar Total Score: 17 [facility] COWS - Scale Resting Pulse: 1= [place] 81-100 Sweatin= Chills/Flushing Restless Observation: 3= Extraneous Movement Pupil Size: 1= Pupils >than Normal Bone or Joint Aches: 2= Severe Diffuse Aches Runny Nose/ Eye Tearin= Runny Nose/Eyes GI Upset > 30mins: 2= Nausea/Diarrhea Tremor Observation of Outstretched Hands: 2= Slight Tremor Visible Yawning Observation: 1= 1-2x During Session Anxiety or Irritability: 2=Irritable/Anxious Goose Flesh Skin: 0=Smooth Skin COWS Score: 17 [facility] Progress Note (SOAP) Subjective: ALERT,IRRITABLE,ANXIOUS,INTERRUPTED SLEEP,TREMOR,PAIN IN THE BODY AND BACK Objective: 12/28/17 11:46 Vital Signs Temperature 97.1 F L 12/28/17 11:36 Pulse Rate 92 H 12/28/17 11:36 Respiratory Rate 16 12/28/17 11:36 Blood Pressure 137/68 12/28/17 11:36 O2 Sat by Pulse Oximetry (%) EKG NSR,NORMAL ECG Laboratory Last Values WBC 8.1 K/mm3 (4.0-10.0) 12/28/17 07:00 RBC 4.54 M/mm3 (4.00-5.60) 12/28/17 07:00 Hgb 13.7 GM/dL (11.7-16.9) 12/28/17 07:00 Hct 42.1 % (35.4-49) 12/28/17 07:00 MCV 92.6 fl (80-96) 12/28/17 07:00 MCH 30.1 pg (25.7-33.7) 12/28/17 07:00 MCHC 32.6 g/dl (32.0-35.9) 12/28/17 07:00 RDW 12.8 % (11.9-15.9) 12/28/17 07:00 Plt Count 272 K/MM3 (134-434) 12/28/17 07:00 MPV 9.4 fl (7.5-11.1) 12/28/17 07:00 LABS PENDING Assessment: 12/28/17 11:47 WITHDRAWAL SYMPTOM Plan: CONTINUE DETOX
[2017-12-28] MEDS ORDERED: PNEUMOCOCCAL 23 VACCINE 0.5 ML VIAL IM ONE (14:00)
--- NOTE | 2017-12-28 14:21 | EKG ---
Test Reason : Blood Pressure : / mmHG Vent. Rate : 070 BPM Atrial Rate : 070 BPM P-R Int : 142 ms QRS Dur : 100 ms QT Int : 416 ms P-R-T Axes : 073 068 057 degrees QTc Int : 449 ms NORMAL SINUS RHYTHM NON-SPECIFIC INTRA-VENTRICULAR CONDUCTION DELAY WHEN COMPARED WITH ECG OF 21-DEC-2017 18:51, QT HAS SHORTENED Confirmed by MAGNUS LINDSEY MD ([id number]) on 12/28/2017 2:21:03 PM Referred By: Confirmed By:MAGNUS LINDSEY MD
[2017-12-28] MEDS: CYCLOBENZAPRINE HCL 10 MG TABLET (FP) PO PRN ×2 (14:31→22:08)
[2017-12-28] MEDS: THIAMINE HCL 100 MG TABLET (FP) PO SCH (22:07)
[2017-12-28] MEDS: cloNIDine HCL 0.1 MG TABLET PO SCH (22:08)
[2017-12-28] MEDS: MIRTAZAPINE 15 MG TABLET (FP) PO SCH (22:08)
[2017-12-28 23:03] LABS: URINE APPEARANCE TURBID; URINE BILIRUBIN NEGATIVE (NEGATIVE); URINE BLOOD NEGATIVE (NEGATIVE); URINE COLOR AMBER; URINE GLUCOSE (UA) NEGATIVE (NEGATIVE); URINE KETONE TRACE (NEGATIVE); URINE LEUK ESTERASE NEGATIVE (NEGATIVE); URINE NITRITE NEGATIVE (NEGATIVE); URINE PROTEIN NEGATIVE (NEGATIVE); URINE UROBILINOGEN NEGATIVE mg/dL (0.2-1.0)
[2017-12-29] MEDS: cloNIDine HCL 0.1 MG TABLET PO SCH ×2 (10:56→22:02)
[2017-12-29] MEDS: diazePAM 5 MG TABLET PO SCH ×2 (10:56→22:02)
[2017-12-29] MEDS: PRENATAL VITAMINS W/ FOLIC ACID TABLET (FP) PO SCH (10:56)
[2017-12-29] MEDS: METHADONE HCL 5 MG TABLET (FOR DETOX USE ONLY) PO SCH (10:57)
[2017-12-29] MEDS: diazePAM 5 MG TABLET PO PRN ×2 (14:08→18:30)
--- NOTE | 2017-12-29 14:08 | PN ---
S CIWA - CIWA Score Nausea/Vomitin Muscle Tremors: 3 Anxiety: 5 Agitation: 5 Paroxysmal Sweats: 2 Orientation: 0-Oriented Tacttile Disturbances: 0-None Auditory Disturbances: 0-None Visual Disturbances: 0-None Headache: 0-None Present CIWA-Ar Total Score: 18 [facility] COWS - Scale Resting Pulse: 0= [place] 80 or Below Sweatin=Flushed/Facial Moisture Restless Observation: 3= Extraneous Movement Pupil Size: 0= Normal to Room Light Bone or Joint Aches: 1= Mild Discomfort Runny Nose/ Eye Tearin= Runny Nose/Eyes GI Upset > 30mins: 1= Stomach Cramp Tremor Observation of Outstretched Hands: 2= Slight Tremor Visible Yawning Observation: 1= 1-2x During Session Anxiety or Irritability: 2=Irritable/Anxious Goose Flesh Skin: 0=Smooth Skin COWS Score: 14 S Progress Note (SOAP) Subjective: shakes restless Objective: 12/29/17 14:06 ambulates frequently within unit anxious Vital Signs Temperature 96.6 F L 12/29/17 10:00 Pulse Rate 74 12/29/17 10:00 Respiratory Rate 17 12/29/17 10:00 Blood Pressure 121/79 12/29/17 10:00 O2 Sat by Pulse Oximetry (%) Laboratory Last Values WBC 8.1 K/mm3 (4.0-10.0) 12/28/17 07:00 RBC 4.54 M/mm3 (4.00-5.60) 12/28/17 07:00 Hgb 13.7 GM/dL (11.7-16.9) 12/28/17 07:00 Hct 42.1 % (35.4-49) 12/28/17 07:00 MCV 92.6 fl (80-96) 12/28/17 07:00 MCH 30.1 pg (25.7-33.7) 12/28/17 07:00 MCHC 32.6 g/dl (32.0-35.9) 12/28/17 07:00 RDW 12.8 % (11.9-15.9) 12/28/17 07:00 Plt Count 272 K/MM3 (134-434) 12/28/17 07:00 MPV 9.4 fl (7.5-11.1) 12/28/17 07:00 Sodium 142 mmol/L (136-145) 12/28/17 07:00 Potassium 4.0 mmol/L (3.5-5.1) 12/28/17 07:00 Chloride 108 mmol/L (98-107) H 12/28/17 07:00 Carbon Dioxide 26 mmol/L (21-32) 12/28/17 07:00 Anion Gap 8 (8-16) 12/28/17 07:00 BUN 15 mg/dL (7-18) D 12/28/17 07:00 Creatinine 0.8 mg/dL (0.7-1.3) 12/28/17 07:00 Creat Clearance w eGFR > 60 (>60) 12/28/17 07:00 Random Glucose 96 mg/dL (74-106) 12/28/17 07:00 Calcium 8.5 mg/dL (8.5-10.1) 12/28/17 07:00 Total Bilirubin 0.7 mg/dL (0.2-1.0) 12/28/17 07:00 AST 72 U/L (15-37) H D 12/28/17 07:00 ALT 169 U/L (12-78) H D 12/28/17 07:00 Alkaline Phosphatase 124 U/L (45-117) H D 12/28/17 07:00 Total Protein 6.8 g/dl (6.4-8.2) 12/28/17 07:00 Albumin 3.4 g/dl (3.4-5.0) 12/28/17 07:00 Urine Color Nery 12/28/17 17:00 Urine Appearance Turbid 12/28/17 17:00 Urine pH 5.0 (5.0-8.0) 12/28/17 17:00 Ur Specific [place] 1.030 (1.001-1.035) 12/28/17 17:00 Urine Protein Negative (NEGATIVE) 12/28/17 17:00 Urine Glucose (UA) Negative (NEGATIVE) 12/28/17 17:00 Urine Ketones Trace (NEGATIVE) H 12/28/17 17:00 Urine Blood Negative (NEGATIVE) 12/28/17 17:00 Urine Nitrite Negative (NEGATIVE) 12/28/17 17:00 Urine Bilirubin Negative (NEGATIVE) 12/28/17 17:00 Urine Urobilinogen Negative mg/dL (0.2-1.0) 12/28/17 17:00 Ur Leukocyte Esterase Negative (NEGATIVE) 12/28/17 17:00 RPR Titer Nonreactive (NONREACTIVE) 12/28/17 07:00 labs noted Assessment: 12/29/17 14:07 withdrawal sx dehydrated Plan: continue detox increase hydration
[2017-12-29] MEDS: CYCLOBENZAPRINE HCL 10 MG TABLET (FP) PO PRN (22:02)
[2017-12-29] MEDS: THIAMINE HCL 100 MG TABLET (FP) PO SCH (22:02)
[2017-12-29] MEDS: MIRTAZAPINE 15 MG TABLET (FP) PO SCH (22:02)
[2017-12-30] MEDS: METHADONE HCL 5 MG TABLET (FOR DETOX USE ONLY) PO SCH (11:05)
[2017-12-30] MEDS: PRENATAL VITAMINS W/ FOLIC ACID TABLET (FP) PO SCH (11:05)
[2017-12-30] MEDS: cloNIDine HCL 0.1 MG TABLET PO SCH ×2 (11:05→22:37)
[2017-12-30] MEDS: diazePAM 5 MG TABLET PO SCH ×2 (11:06→22:36)
[2017-12-30] MEDS: diazePAM 5 MG TABLET PO PRN ×2 (12:38→16:45)
--- NOTE | 2017-12-30 13:56 | PN ---
[facility] Progress Note (SOAP) Subjective: sweat tremor joint aches irritability Objective: 12/30/17 13:56 Vital Signs Temperature 97.9 F 12/30/17 10:04 Pulse Rate 109 H 12/30/17 10:04 Respiratory Rate 16 12/30/17 10:04 Blood Pressure 118/67 12/30/17 10:04 O2 Sat by Pulse Oximetry (%) Laboratory Last Values WBC 8.1 K/mm3 (4.0-10.0) 12/28/17 07:00 RBC 4.54 M/mm3 (4.00-5.60) 12/28/17 07:00 Hgb 13.7 GM/dL (11.7-16.9) 12/28/17 07:00 Hct 42.1 % (35.4-49) 12/28/17 07:00 MCV 92.6 fl (80-96) 12/28/17 07:00 MCH 30.1 pg (25.7-33.7) 12/28/17 07:00 MCHC 32.6 g/dl (32.0-35.9) 12/28/17 07:00 RDW 12.8 % (11.9-15.9) 12/28/17 07:00 Plt Count 272 K/MM3 (134-434) 12/28/17 07:00 MPV 9.4 fl (7.5-11.1) 12/28/17 07:00 Sodium 142 mmol/L (136-145) 12/28/17 07:00 Potassium 4.0 mmol/L (3.5-5.1) 12/28/17 07:00 Chloride 108 mmol/L (98-107) H 12/28/17 07:00 Carbon Dioxide 26 mmol/L (21-32) 12/28/17 07:00 Anion Gap 8 (8-16) 12/28/17 07:00 BUN 15 mg/dL (7-18) D 12/28/17 07:00 Creatinine 0.8 mg/dL (0.7-1.3) 12/28/17 07:00 Creat Clearance w eGFR > 60 (>60) 12/28/17 07:00 Random Glucose 96 mg/dL (74-106) 12/28/17 07:00 Calcium 8.5 mg/dL (8.5-10.1) 12/28/17 07:00 Total Bilirubin 0.7 mg/dL (0.2-1.0) 12/28/17 07:00 AST 72 U/L (15-37) H D 12/28/17 07:00 ALT 169 U/L (12-78) H D 12/28/17 07:00 Alkaline Phosphatase 124 U/L (45-117) H D 12/28/17 07:00 Total Protein 6.8 g/dl (6.4-8.2) 12/28/17 07:00 Albumin 3.4 g/dl (3.4-5.0) 12/28/17 07:00 Urine Color Nery 12/28/17 17:00 Urine Appearance Turbid 12/28/17 17:00 Urine pH 5.0 (5.0-8.0) 12/28/17 17:00 Ur Specific [place] 1.030 (1.001-1.035) 12/28/17 17:00 Urine Protein Negative (NEGATIVE) 12/28/17 17:00 Urine Glucose (UA) Negative (NEGATIVE) 12/28/17 17:00 Urine Ketones Trace (NEGATIVE) H 12/28/17 17:00 Urine Blood Negative (NEGATIVE) 12/28/17 17:00 Urine Nitrite Negative (NEGATIVE) 12/28/17 17:00 Urine Bilirubin Negative (NEGATIVE) 12/28/17 17:00 Urine Urobilinogen Negative mg/dL (0.2-1.0) 12/28/17 17:00 Ur Leukocyte Esterase Negative (NEGATIVE) 12/28/17 17:00 RPR Titer Nonreactive (NONREACTIVE) 12/28/17 07:00 lab noted Assessment: 12/30/17 13:57 withdrawal sx Plan: continue detox
[2017-12-30] MEDS: THIAMINE HCL 100 MG TABLET (FP) PO SCH (22:36)
[2017-12-30] MEDS: MIRTAZAPINE 15 MG TABLET (FP) PO SCH (22:36)
[2017-12-31] MEDS ORDERED: METHADONE HCL 10 MG TABLET (FOR DETOX USE ONLY) PO SCH (10:00)
[2017-12-31] MEDS ORDERED: diazePAM 5 MG TABLET PO SCH (10:00)
[2017-12-31] MEDS: PRENATAL VITAMINS W/ FOLIC ACID TABLET (FP) PO SCH (10:50)
[2017-12-31] MEDS: cloNIDine HCL 0.1 MG TABLET PO SCH ×2 (10:50→21:45)
[2017-12-31] MEDS: CYCLOBENZAPRINE HCL 10 MG TABLET (FP) PO PRN ×2 (10:51→21:45)
--- NOTE | 2017-12-31 11:30 | PN ---
S Progress Note (SOAP) Subjective: ALERT,IRRITABLE,ANXIOUS,INTERRUPTED SLEEP Objective: 12/31/17 11:29 Vital Signs Temperature 97.7 F 12/31/17 10:41 Pulse Rate 117 H 12/31/17 10:41 Respiratory Rate 20 12/31/17 10:41 Blood Pressure 128/61 12/31/17 10:41 O2 Sat by Pulse Oximetry (%) Assessment: 12/31/17 11:29 WITHDRAWAL SYMPTOM Plan: CONTINUE DETOX,DISCHARGE IN AM
[2017-12-31] MEDS: MIRTAZAPINE 15 MG TABLET (FP) PO SCH (21:45)
[2017-12-31] MEDS: THIAMINE HCL 100 MG TABLET (FP) PO SCH (21:45)
[2018-01-01] MEDS ORDERED: METHADONE HCL 5 MG TABLET (FOR DETOX USE ONLY) PO SCH (06:00)
[2018-01-01 06:19] VITALS: BP 109/50; PULSE 57; TEMP 97.3
--- NOTE | 2018-01-01 08:38 | DS ---
[facility] Detox Discharge Summary Admission Date: 12/27/17 Discharge Date: 01/01/18 - History Present History: Cannabis Dependence, Cocaine Dependence, Opioid Dependence, Sedative Dependence Additional Comments: follow up with after care program as arrangement Pertinent Past History: asthma nicotine dependence insomnia - Physical Exam Results Vital Signs: Vital Signs Temperature 97.3 F L 01/01/18 06:19 Pulse Rate 57 L 01/01/18 06:19 Respiratory Rate 18 01/01/18 06:19 Blood Pressure 109/50 01/01/18 06:19 O2 Sat by Pulse Oximetry (%) Pertinent Admission Physical Exam Findings: withdrawal symptom and finding - Treatment Hospital Course: Detox Protocol Followed, Detoxed Safely, Responded well, Discharged Condition Good, Rehab Referral Accepted Patient has Accepted a Rehab Referral to: [facility] - Medication Discharge Medications: Ambulatory Orders Albuterol Sulfate Inhaler - [Ventolin Hfa Inhaler -] 1 - 2 inh PO QID PRN - Diagnosis (1) Opioid dependence with withdrawal Current Visit: No Status: Acute (2) Sedative, hypnotic or anxiolytic use, unspecified with withdrawal with perceptual disturbances Current Visit: Yes Status: Acute (3) Weight loss Current Visit: Yes Status: Acute (4) Cannabis dependence Current Visit: Yes Status: Chronic (5) Cocaine dependence Current Visit: Yes Status: Chronic Qualifiers: Substance use status: uncomplicated Qualified Code(s): F14.20 - Cocaine dependence, uncomplicated (6) Nicotine dependence Current Visit: Yes Status: Chronic Qualifiers: Nicotine product type: cigarettes Substance use status: uncomplicated Qualified Code(s): F17.210 - Nicotine dependence, cigarettes, uncomplicated (7) Asthma Current Visit: No Status: Chronic Qualifiers: Asthma severity: mild Asthma persistence: unspecified Asthma complication type: unspecified Qualified Code(s): J45.998 - Other asthma - AMA Did Patient Leave Against Medical Advice: No
== END 2018-01-01 08:55 | disposition home or self-care (01) | DRG 897 ==
LOC: YASAS 11:16 → Y6N 17:46
PROVIDERS: ADMIT Internal Medicine; ATTEND Internal Medicine
PROC: HZ2ZZZZ Detoxification Services for Substance Abuse Treatment (ICD-10-PCS; principal; 2017-12-27)
DX: F11.23 Opioid dependence with withdrawal (principal); F14.20 Cocaine dependence, uncomplicated; F13.230 Sedative, hypnotic or anxiolytic dependence with withdrawal, uncomplicated; F12.20 Cannabis dependence, uncomplicated; F17.210 Nicotine dependence, cigarettes, uncomplicated; F19.24 Other psychoactive substance dependence with psychoactive substance-induced mood disorder; J45.998 Other asthma; E86.0 Dehydration; G47.00 Insomnia, unspecified; Z91.013 Allergy to seafood; Z87.898 Personal history of other specified conditions
CPT/HCPCS: 36415; 80053; 81003; 85027; 86593; 93005; 93010; J0735